=== PATIENT | female | born 1995 | race Asian ===

== ENCOUNTER 2024-11-19 06:59 | Outpatient (REF) | payer OTHER, SELFPAY ==
--- NOTE | ~2024-11-19 | US_ITS ---
EXAMINATION: US PELVIS TRANSABDOMINAL AND TRANSVAGINAL HISTORY: PELVIC PAIN, CHECK IUD COMPARISON: There are no prior studies available for comparison. TECHNIQUE: Transabdominal and endovaginal real-time 2D santos-scale ultrasound was performed. FINDINGS: Uterus: The uterus is normal in size, measuring 8.3 x 4.5 x 4.1 cm. Myometrium has a normal echotexture. No fibroids are identified. Endometrium: The endometrial stripe measures 12 mm in thickness. An IUD is noted with its tip approximately 3.5 cm from the uterine fundus. Right ovary: The right ovary measures 3.6 x 2.7 x 2.1 cm. The right ovary is normal in size and echotexture. Left ovary: The left ovary measures 2.9 x 1.6 x 1.9 cm. The left ovary is normal in size and echotexture. Pelvic fluid: none. US/US pelvic and transvaginal IMPRESSION: Low-lying IUD with its tip approximately 3.5 cm from the uterine fundus. Electronically signed by: Austen Steiner MD 11/19/2024 12:27 PM EDT
== END 2024-11-19 07:00 | disposition home or self-care (01) ==
LOC: HO.UMASIMG 06:59
PROVIDERS: Visit Provider Nurse Practitioner Women's Health
DX: Z30.431 Encounter for routine checking of intrauterine contraceptive device (principal); R10.20 Pelvic and perineal pain unspecified side
CPT/HCPCS: 76830; 76856

== ENCOUNTER → 2024-11-19 10:21 | Outpatient (BNV) | payer OTHER, SELFPAY | PROVIDERS: Visit Provider Radiology Diagnostic Radiology | DX: R10.20 Pelvic and perineal pain unspecified side (principal); Z30.431 Encounter for routine checking of intrauterine contraceptive device | CPT/HCPCS: 76830; 76856 ==